=== PATIENT | male | born 1960 | race Caucasian/White ===

== ENCOUNTER 2018-10-08 11:34 | Emergency (ER) | payer OTHER ==
[2018-10-08] MEDS: IBUPROFEN 200 MG TAB PO (12:59)
== END 2018-10-08 14:28 | disposition home or self-care (01) ==
LOC: FTE 11:34
DX: S49.92XA Unspecified injury of left shoulder and upper arm, initial encounter (principal); E11.9 Type 2 diabetes mellitus without complications; I10 Essential (primary) hypertension; S79.912A Unspecified injury of left hip, initial encounter; W01.0XXA Fall on same level from slipping, tripping and stumbling without subsequent striking against object, initial encounter; Y92.9 Unspecified place or not applicable; Z79.84 Long term (current) use of oral hypoglycemic drugs
CPT/HCPCS: 73030; 73510; 73550; 99284-25